=== PATIENT | male | born 1965 | race African-American/Black ===

== ENCOUNTER 2016-02-21 16:31 | Emergency (ER) | payer OTHER ==
[~2016-02-21] VITALS: Ht 195.6 cm; Wt 120.2 kg
[2016-02-21 17:10] LABS: BASO % 1 % (0-3); EOS % 2 % (0-3); HEMATOCRIT 33.2 % (39.0-53.0); LYMPH # 2.3 x10^3/uL (1.0-4.8); LYMPH % 28 % (24-48); MEAN CORPUSCULAR HEMOGLOBIN 29 pg (25-35); MEAN CORPUSCULAR HGB CONC 33 g/dL (31-37); MEAN CORPUSCULAR VOLUME 86 fL (79-100); MONO % 9 % (0-9); NEUT % 61 % (31-73); PLATELET COUNT 201 x10^3/uL (140-400); RED BLOOD COUNT 3.84 x10^6/uL (4.30-5.70); RED CELL DISTRIBUTION WIDTH 13.7 % (11.5-14.5); WHITE BLOOD COUNT 8.1 x10^3/uL (4.0-11.0)
[2016-02-21] MEDS ORDERED: hydrALAZINE 20 MG/ML VIAL. IVP ONE (17:15)
[2016-02-21 17:19] LABS: INR 1.3 (0.8-1.1); PROTHROMBIN TIME PATIENT 15.7 SEC (11.7-14.0)
[2016-02-21 17:26] LABS: CALCIUM 9.1 mg/dL (8.5-10.1); CREATININE 1.8 mg/dL (0.7-1.3); GFR 48.8; POTASSIUM 3.9 mmol/L (3.5-5.1)
[2016-02-21] MEDS ORDERED: LABETALOL 20 MG/4 ML DISP.SYRIN. IVP ONE (17:30)
[2016-02-21] MEDS ORDERED: LIDOCAINE 2% JELLY 6ML IN APPLICATOR. MM ONE (19:15)
[2016-02-21] MEDS ORDERED: MORPHINE SULFATE 10 MG/ML VIAL. IV ONE (19:15)
[2016-02-21] MEDS ORDERED: CEPH-263 PO (19:28)
--- NOTE | 2016-02-21 19:28 | PHYS DOC ---
Past Medical History Past Medical History: Hypertension, Hypotension, Renal Disease, Stroke, UTI Additional Past Medical Histor: RESP FAILURE, BRADYCARDIA, DIZZINESS, AMNESIA Past Surgical History: Other Additional Past Surgical Histo: UNKNOWN Alcohol Use: None Drug Use: None Adult General Chief Complaint Chief Complaint: PENIS PROBLEM HPI HPI Patient is a 50 year old male with neurogenic bladder and chronic indwelling Cerda who presents by EMS from nursing facility for evaluation of bloody penile discharge after attempt of Cerda catheter insertion and penile/perineal pain. This was a routine Cerda catheter exchange. He usually wears a 16 Palauan catheter, and he states they tried to insert an 18 Palauan catheter. He noted perineal and penile shaft pain and bleeding from his urethra area. He denies pain currently and does not want medications for pain. He has sensation to void. He denies abdominal pain, nausea or vomiting. His sister is also present during history and evaluation. They state he has largely fluctuating blood pressures and requires special medications for this. They are not surprised by how hypertensive he is. He denies chest pain, dyspnea, headache, vision changes. Review of Systems Review of Systems Constitutional: Denies fever or chills [] Eyes: Denies change in visual acuity, redness, or eye pain [] HENT: Denies nasal congestion or sore throat [] Respiratory: Denies cough or shortness of breath [] Cardiovascular: No additional information not addressed in HPI [] GI: Denies abdominal pain, nausea, vomiting, bloody stools or diarrhea [] : Denies dysuria [] Musculoskeletal: Denies back pain or joint pain [] Integument: Denies rash or skin lesions [] Neurologic: Denies headache, focal weakness or sensory changes [] Endocrine: Denies polyuria or polydipsia [] Current Medications Current Medications Current Medications Medications (Trade) Dose Ordered Sig/Yaz Start Time Stop Time Status Last Admin Dose Admin Hydralazine HCl (Apresoline) 20 mg 1X ONCE 02/21/16 17:15 02/21/16 17:16 DC 02/21/16 17:20 20 MG Labetalol HCl (Normodyne) 10 mg 1X ONCE 02/21/16 17:30 02/21/16 17:33 DC 02/21/16 17:41 10 MG Lidocaine HCl (Glydo (Lidocaine) Jelly) 1 mars 1X ONCE 02/21/16 19:15 02/21/16 19:16 DC Morphine Sulfate 5 mg 1X ONCE 02/21/16 19:15 02/21/16 19:16 DC Allergies Allergies Allergies Coded Allergies Type Severity Reaction Last Updated Verified No Known Drug Allergies 02/21/16 No Physical Exam Physical Exam Constitutional: Well developed, well nourished, no acute distress, non-toxic appearance. [] HENT: Normocephalic, atraumatic, bilateral external ears normal, oropharynx moist, nose normal. [] Eyes: PERRLA, EOMI. [] Neck: Normal range of motion, supple. [] Cardiovascular:Heart rate regular rhythm [] Lungs & Thorax: Bilateral breath sounds clear to auscultation [] Abdomen: Bowel sounds normal, soft, no tenderness. [] Genitourinary: Has penile shaft tenderness and perineal tenderness with no palpable abnormality, has minimal bloody discharge from urethra. There is no crepitance or induration. There is no scrotal edema or ecchymosis Skin: Warm, dry, no erythema, no rash. [] Back: No tenderness, no CVA tenderness. [] Extremities: No tenderness, no edema. [] Neurologic: Alert and oriented X 3. [] Psychologic: Affect normal, judgement normal, mood normal. [] Current Patient Data Vital Signs Vital Signs Date Time Temp Pulse Resp B/P Pulse Ox O2 Delivery O2 Flow Rate FiO2 02/21/16 20:10 80 18 168/84 99 Room Air Lab Values Laboratory Tests Test 02/21/16 16:44 White Blood Count 8.1x10^3/uL (4.0-11.0) Red Blood Count 3.84x10^6/uL (4.30-5.70) L Hemoglobin 11.0g/dL (13.0-17.5) L Hematocrit 33.2% (39.0-53.0) L Mean Corpuscular Volume 86fL (79-100) Mean Corpuscular Hemoglobin 29pg (25-35) Mean Corpuscular Hemoglobin Concent 33g/dL (31-37) Red Cell Distribution Width 13.7% (11.5-14.5) Platelet Count 201x10^3/uL (140-400) Neutrophils (%) (Auto) 61% (31-73) Lymphocytes (%) (Auto) 28% (24-48) Monocytes (%) (Auto) 9% (0-9) Eosinophils (%) (Auto) 2% (0-3) Basophils (%) (Auto) 1% (0-3) Neutrophils # (Auto) 4.9x10^3uL (1.8-7.7) Lymphocytes # (Auto) 2.3x10^3/uL (1.0-4.8) Monocytes # (Auto) 0.7x10^3/uL (0.0-1.1) Eosinophils # (Auto) 0.2x10^3/uL (0.0-0.7) Basophils # (Auto) 0.0x10^3/uL (0.0-0.2) Prothrombin Time 15.7SEC (11.7-14.0) H Prothrombin Time INR 1.3 (0.8-1.1) H PTT 35SEC (24-38) Sodium Level 136mmol/L (136-145) Potassium Level 3.9mmol/L (3.5-5.1) Chloride Level 104mmol/L (98-107) Carbon Dioxide Level 30mmol/L (21-32) Anion Gap 2 (6-14) L Blood Urea Nitrogen 29mg/dL (8-26) H Creatinine 1.8mg/dL (0.7-1.3) H Estimated GFR (Cockcroft-Gault) 48.8 Glucose Level 90mg/dL (70-99) Calcium Level 9.1mg/dL (8.5-10.1) Laboratory Tests 02/21/16 16:44 Laboratory Tests 02/21/16 16:44 Course & Med Decision Making Course & Med Decision Making Pertinent Labs and Imaging studies reviewed. (See chart for details) Laboratory evaluation is unremarkable. Discussed case with Dr. Ch, [facility], who recommended trial of 16 Palauan Coude catheter insertion. Nursing inserted this without difficulty passage and had initial pink urine followed by yellow clear urine. His symptom of need to void resolved. He will follow up with [facility]. He will be placed on prophylactic antibiotics per recommendation by Dr. Ch. Return precautions given. He and family understand and agree with plan. Dragon Disclaimer Dragon Disclaimer This electronic medical record was generated, in whole or in part, using a voice recognition dictation system. Departure Departure Impression: Primary Impression: Internal injury, urethra, closed Additional Impression: Uncontrolled hypertension Disposition: 01 HOME, SELF-CARE (transfer back to nursing facility) Condition: STABLE Referrals: UNKNOWN PCP NAME (PCP) Patient Instructions: Cerda Catheter Care, Adult Additional Instructions: Take Keflex to help prevent infection. Continue your current medications. Follow -up with [facility]. Return for any concerns. Scripts Cephalexin (Keflex)250 Mg Capsule1 Cap PO TID #15 CAP Prov:Bruna PEÑA MD 02/21/16 Problem Qualifiers Primary Impression: Internal injury, urethra, closed Encounter type: initial encounter Qualified Code: S37.30XA - Unspecified injury of urethra, initial encounter Bruna PEÑA MD Feb 21, 2016 19:28
[2016-02-21 20:10] VITALS: BP 168/84
== END 2016-02-21 21:20 | disposition home or self-care (01) ==
LOC: ER 16:31
DX: S37.30XA Unspecified injury of urethra, initial encounter (principal); I12.9 Hypertensive chronic kidney disease with stage 1 through stage 4 chronic kidney disease, or unspecified chronic kidney disease; N18.9 Chronic kidney disease, unspecified; I95.9 Hypotension, unspecified; Z46.6 Encounter for fitting and adjustment of urinary device; Z86.73 Personal history of transient ischemic attack (TIA), and cerebral infarction without residual deficits; Z87.440 Personal history of urinary (tract) infections; Y84.6 Urinary catheterization as the cause of abnormal reaction of the patient, or of later complication, without mention of misadventure at the time of the procedure; Y93.89 Activity, other specified; Y99.8 Other external cause status; Y92.89 Other specified places as the place of occurrence of the external cause
CPT/HCPCS: 36415; 51702; 80048; 85027; 85610; 85730; 86850; 86900; 86901; 96374; 96375; 99284; A4314; J0360; J3490

== ENCOUNTER 2016-05-21 00:43 | Inpatient (IN) | payer MEDICARE, OTHER ==
[2016-05-21] VITALS (7 sets, daily range): BP systolic 85–177; BP diastolic 56–122
[~2016-05-21] VITALS: Ht 195.6 cm; Wt 117.3 kg
[~2016-05-21 00:43] MED LIST: CEPH-263 PO
[2016-05-21 01:22] LABS: BILIRUBIN,URINE NEGATIVE (NEG); GLUCOSE,URINE NEGATIVE (NEG); NITRITE,URINE POSITIVE (NEG); PROTEIN,URINE 100 mg/dL (NEG-TRACE); UROBILINOGEN,URINE 0.2 mg/dL (0.2 mg/dL)
[2016-05-21 01:28] LABS: BACTERIA,URINE MANY /HPF (0-FEW); SQUAMOUS EPITHELIAL CELL,UR OCC /LPF
[2016-05-21] MEDS ORDERED: hydrALAZINE 20 MG/ML VIAL. IVP ONE (01:30)
--- NOTE | 2016-05-21 01:41 | ACF ---
Admission Forms Criteria MENTAL STATUS CHANGE Clinical Indications for Inpatient Care (Place 'X' for any and all applicable criteria): Ongoing inpatient care may be needed for ANY ONE of the following(1)(2)(3)(5)(6) : [ ]I. Suspected serious etiology (eg, medical disorder, SKEWER UP event) of mental status change [ ]II. Danger to self or others not manageable at lower level of care [ ]III. Grave disability (eg, inability to perform self care necessary at lower level of care) [ ]IV. Agitation or inappropriate behavior interfering with care for primary condition (eg, attempting to discontinue lines or drains prematurely, unable to cooperate with respiratory care) [ ]V. Delirium [A] [D][E] as described by ANY ONE of the following(26): [ ]a) Delirium due to alcohol or sedative [F] withdrawal [ ]b) Delirium of uncertain etiology that has not responded to appropriate empiric treatment [ ]c) Delirium that prevents performance of a life-sustaining function (eg, feeding or hydrating oneself) [ ]. General contraindications and/or Inappropriate clinical situations for Observational Care in patients with Mental Status Change, when ANY ONE of the following is required: [ ]a) Prediction of prolongation of LOS based on ANY ONE of the following may be considered as a contraindication for observational care 2, 3, 4, 5, 6, 7, 8, 9, 10, 11 [ ]i) Age > 65 yrs. [ ]ii) Patient arriving by ambulance [ ]iii) Patient with high acuity [ ]iv) Patient requiring vital sign monitoring [ ]v) Patient on IV medication [ ]b) Systolic blood pressures 180mmHg 3,12 [ ]c) Patient with altered mental status including delirium and other alteration of consciousness, (3) [ ]d) Patient whose discharge disposition will be to a snf home or rehabilitation home should not be managed in Emergency Department Observation Unit. CMS rule requires 3 days hospital stay before such placement.3,13 [ ]e) Patient with failure to thrive due to broad array of etiologies 3,16,17 [ ]f) Inability to ambulate 3,14 Extended stay beyond goal length of stay for the primary condition may be needed until ALL of the following are present(3)(5): [ ]a) Underlying medical etiology of mental status change is absent, or has been established and adequately treated [ ]b) Danger to self or others is absent or manageable at lower level of care. [ ]c) Behavior crisis management, including physical or chemical restraints, is not required or available at lower level of car [ ]d) Substance or alcohol withdrawal is absent or manageable at lower level of care. [ ]e) Behavioral symptoms (eg, agitation, somnolence, inappropriate behavior) are absent, or are manageable at lower level of care. The original [facility] content created by [facility] has been revised. The portions of the content which have been revised are identified through the use of italic text or in bold, and [facility] has neither reviewed nor approved the modified material. All other unmodified content is copyright [facility]. Please see references footnoted in the original [facility] edition 2016 CHRISTOPHER FUENTES May 21, 2016 01:41
--- NOTE | 2016-05-21 01:49 | RAD ---
Examination: CT head without contrast History: History of altered mental status. COMPARISON None available Exposure: One or more of the following dose reduction technique were utilized for this examination: 1. Automated exposure control. 2.Adjustment of MA and /or KV according to patient size. 3. Use of iterative reconstruction technique. Findings: There is no evidence of midline shift. There is no acute extra-axial fluid collection identified. There is 2.4 centimeter hypodensity identified in the left frontal lobe probably old infarct. There is tiny focus of hyperdensity identified in the hypodensity in the left frontal lobe just lateral to the left lateral ventricle could be calcification. Mild bilateral periventricular white matter hypodensities likely chronic small vessel ischemic disease. The basal cisterns are not effaced. The visualized paranasal sinuses, mastoid air cells are clear. Impression: 1. Hypodensity identified in the left frontal lobe likely old infarct. There is tiny focus of hyperdensity, measuring 3 millimeters, identified in the hypodensity of the left frontal lobe just lateral to the left lateral ventricle could be calcification. Comparison to prior exam is recommended if available. Alternatively close interval followup examination can be considered. Electronically signed by: Jose Manuel Schaffer (May 21, 2016 01:47:14)
[2016-05-21 01:54] LABS: BASO # 0.1 x10^3/uL (0.0-0.2); BASO % 1 % (0-3); EOS % 1 % (0-3); HEMATOCRIT 34.5 % (39.0-53.0); HEMOGLOBIN 11.5 g/dL (13.0-17.5); LYMPH # 1.5 x10^3/uL (1.0-4.8); LYMPH % 17 % (24-48); MEAN CORPUSCULAR HEMOGLOBIN 28 pg (25-35); MEAN CORPUSCULAR HGB CONC 33 g/dL (31-37); MEAN CORPUSCULAR VOLUME 84 fL (79-100); MONO % 7 % (0-9); NEUT % 75 % (31-73); PLATELET COUNT 130 x10^3/uL (140-400); RED BLOOD COUNT 4.12 x10^6/uL (4.30-5.70); RED CELL DISTRIBUTION WIDTH 13.9 % (11.5-14.5); WHITE BLOOD COUNT 9.1 x10^3/uL (4.0-11.0)
[2016-05-21 02:06] LABS: CALCIUM 9.3 mg/dL (8.5-10.1); GFR 43.2; POTASSIUM 3.5 mmol/L (3.5-5.1)
[2016-05-21 02:11] LABS: ALBUMIN 3.5 g/dL (3.4-5.0); ALBUMIN/GLOBULIN RATIO 0.8 (1.0-1.7); TOTAL BILIRUBIN 0.7 mg/dL (0.2-1.0); TOTAL PROTEIN 7.7 g/dL (6.4-8.2)
[2016-05-21] MEDS ORDERED: ONDANSETRON PF 4 MG/2 ML VIAL. IV PRN (02:30)
[2016-05-21] MEDS ORDERED: hydrALAZINE 20 MG/ML VIAL. IVP PRN (02:30)
[2016-05-21] MEDS ORDERED: MORPHINE SULFATE 2 MG/ML DISP.SYRIN. IV PRN ×2 (02:30→08:15)
[2016-05-21] MEDS ORDERED: ACETAMINOPHEN 325 MG TABLET. PO PRN (02:30)
[2016-05-21] MEDS ORDERED: CEFTRIAXONE 1GM IVPB FOR OMNI 50 ML IV ONE (03:00)
--- NOTE | 2016-05-21 03:01 | ACF ---
Admission Forms Criteria HYPERTENSION Clinical Indications for Admission to Inpatient Care ( Place "X" for any and all applicable criteria): Admission is indicated for ANY ONE of the following(1)(2)(3)(4): [ ]I. Hypertensive emergency, with evidence of acute and progressing target organ disease as indicated by ANY ONE of the following: [ ]a) Hypertensive encephalopathy (eg, confusion, altered mental status) [ ]b) Cerebral infarction [ ]c) Intracranial hemorrhage [ ]d) Myocardial ischemia or infarction [ ]e) Pulmonary edema [ ]f) Aortic dissection [ ]g) Seizure [ ]h) Acute renal insufficiency [ ]i) Papilledema [ ]j) Microangiopathic hemolytic anemia [ ]II. Adrenergic crisis (eg, severe hypertension due to pheochromocytoma crisis, cocaine or amphetamine intoxication, or clonidine withdrawal) [X]III. Severe hypertension (SBP greater than 180 mmHg or DBP greater than 110 mmHg or greater than the 95th percentile for age, gender, and height in pediatric patients) that cannot be controlled (eg, to SBP less than 160 mmHg and DBP less than 100 mmHg in adults) by treatment with oral medication in emergency department or observation care Extended stay beyond goal length of stay may be needed for(11)(12)(13): [ ]a) Persistent hypertensive encephalopathy [ ]b) Continuation of pulmonary edema [ ]c) Recurring or persistent severe hypertension [ ]d) Target organ damage (eg, angina, stroke, aortic dissection) [ ]e) Associated renal insufficiency The original [employer] content created by [employer] has been revised. The portions of the content which have been revised are identified through the use of italic text or in bold, and [facility] has neither reviewed nor approved the modified material. All other unmodified content is copyright [employer]. Please see references footnoted in the original [employer] [facility] edition 2016 Admission Criteria Met?: Yes CHRISTOPHER FUENTES May 21, 2016 03:01
[2016-05-21] MEDS ORDERED: ATOM18CA PO (04:08)
[2016-05-21] MEDS ORDERED: ALBU2.5V14 NEB (04:08)
[2016-05-21] MEDS ORDERED: FLUT9.9S NS (04:08)
[2016-05-21] MEDS ORDERED: DOCU100C5 PO (04:08)
[2016-05-21] MEDS ORDERED: ESCI20TA PO (04:08)
[2016-05-21] MEDS ORDERED: POLY17PO5 PO (04:08)
[2016-05-21] MEDS ORDERED: ASPI81TA2 PO (04:08)
[2016-05-21] MEDS ORDERED: CHOL200044 PO (04:08)
[2016-05-21] MEDS ORDERED: 0.9126SP NS (04:32)
[2016-05-21] MEDS ORDERED: MAGN311T PO (04:32)
[2016-05-21] MEDS ORDERED: SENN8.6T4 PO (04:32)
[2016-05-21] MEDS ORDERED: MIDO10TA PO (04:32)
[2016-05-21] MEDS ORDERED: MAGN400O4 PO (04:32)
[2016-05-21] MEDS ORDERED: NITR1OIN TD (04:32)
[2016-05-21] MEDS ORDERED: SENN8.6T67 PO (04:32)
[2016-05-21] MEDS ORDERED: HYDR-2867 PO (04:32)
--- NOTE | 2016-05-21 04:37 | PHYS DOC ---
Past Medical History Past Medical History: Hypertension, Hypotension, Renal Disease, Stroke, UTI Additional Past Medical Histor: RESP FAILURE, BRADYCARDIA, DIZZINESS, AMNESIA, SYNCOPE Past Surgical History: Other Additional Past Surgical Histo: UNKNOWN Alcohol Use: None Drug Use: None Adult General Chief Complaint Chief Complaint: ALTERED MENTAL STATUS HPI HPI Patient is a 50 year old male who presents after unresponsive episode. Patient sent from [facility] after episode where staff reports he was unresponsive for approximately 20 minutes. He is breathing spontaneously, and had a pulse but was unresponsive to verbal stimuli or sternal rub. Patient does not recall this episode. He says he is feeling okay at this time, however he does not feel good. He denies any specific complaints. He does have history of orthostatic hypotension as well as autonomic nervous system dysfunction. Review of Systems Review of Systems Constitutional: Unresponsive episode. Denies fever or chills Eyes: Denies change in visual acuity or eye pain HENT: Denies nasal congestion or sore throat Respiratory: Denies cough or shortness of breath Cardiovascular: Denies chest pain GI: Denies abdominal pain, nausea, vomiting, bloody stools or diarrhea : Denies dysuria or hematuria Musculoskeletal: Denies back pain or joint pain Integument: Denies rash or skin lesions Neurologic: Denies headache, focal weakness or sensory changes Current Medications Current Medications Current Medications Medications (Trade) Dose Ordered Sig/Yaz Start Time Stop Time Status Last Admin Dose Admin Hydralazine HCl (Apresoline) 10 mg 1X ONCE 05/21/16 01:30 05/21/16 01:31 DC 05/21/16 01:57 10 MG Allergies Allergies Allergies Coded Allergies Type Severity Reaction Last Updated Verified No Known Drug Allergies 02/21/16 No Physical Exam Physical Exam Constitutional: Well developed, well nourished, no acute distress, non-toxic appearance HENT: Normocephalic, atraumatic, bilateral external ears normal Eyes: PERRL, EOMI, conjunctiva normal, no discharge Neck: Normal range of motion, no stridor Cardiovascular: Borderline tachycardia, regular rhythm, no murmur Lungs & Thorax: Bilateral breath sounds clear to auscultation Abdomen: Bowel sounds normal, soft, non-distended, no TTP Skin: Warm, dry, no erythema, no rash Extremities: No obvious deformity, no edema Neurologic: Alert and oriented X 3, GCS 15, CN II-XII grossly intact, strength diminished throughout but symmetrical, sensation to light touch intact throughout Current Patient Data Vital Signs Vital Signs Date Time Temp Pulse Resp B/P Pulse Ox O2 Delivery O2 Flow Rate FiO2 05/21/16 02:23 104 18 155/92 99 05/21/16 02:13 Room Air 05/21/16 01:00 98.5 98.5 Lab Values Laboratory Tests Test 05/21/16 00:59 05/21/16 01:45 Urine Collection Type Unknown Urine Color Yellow Urine Clarity Turbid Urine pH 8.0 Urine Specific [place] 1.010 Urine Protein 100mg/dL (NEG-TRACE) Urine Glucose (UA) Negativemg/dL (NEG) Urine Ketones (Stick) Negativemg/dL (NEG) Urine Blood Moderate (NEG) Urine Nitrite Positive (NEG) Urine Bilirubin Negative (NEG) Urine Urobilinogen Dipstick 0.2mg/dL (0.2 mg/dL) Urine Leukocyte Esterase Moderate (NEG) Urine RBC 3-5/HPF (0-2) Urine WBC 5-10/HPF (0-4) Urine Squamous Epithelial Cells Occ/LPF Urine Amorphous Sediment Present/HPF Urine Bacteria Many/HPF (0-FEW) Urine Mucus Slight/LPF White Blood Count 9.1x10^3/uL (4.0-11.0) Red Blood Count 4.12x10^6/uL (4.30-5.70) L Hemoglobin 11.5g/dL (13.0-17.5) L Hematocrit 34.5% (39.0-53.0) L Mean Corpuscular Volume 84fL (79-100) Mean Corpuscular Hemoglobin 28pg (25-35) Mean Corpuscular Hemoglobin Concent 33g/dL (31-37) Red Cell Distribution Width 13.9% (11.5-14.5) Platelet Count 130x10^3/uL (140-400) L Neutrophils (%) (Auto) 75% (31-73) H Lymphocytes (%) (Auto) 17% (24-48) L Monocytes (%) (Auto) 7% (0-9) Eosinophils (%) (Auto) 1% (0-3) Basophils (%) (Auto) 1% (0-3) Neutrophils # (Auto) 6.8x10^3uL (1.8-7.7) Lymphocytes # (Auto) 1.5x10^3/uL (1.0-4.8) Monocytes # (Auto) 0.7x10^3/uL (0.0-1.1) Eosinophils # (Auto) 0.1x10^3/uL (0.0-0.7) Basophils # (Auto) 0.1x10^3/uL (0.0-0.2) Sodium Level 141mmol/L (136-145) Potassium Level 3.5mmol/L (3.5-5.1) Chloride Level 102mmol/L (98-107) Carbon Dioxide Level 31mmol/L (21-32) Anion Gap 8 (6-14) Blood Urea Nitrogen 27mg/dL (8-26) H Creatinine 2.0mg/dL (0.7-1.3) H Estimated GFR (Cockcroft-Gault) 43.2 BUN/Creatinine Ratio 14 (6-20) Glucose Level 120mg/dL (70-99) H Calcium Level 9.3mg/dL (8.5-10.1) Total Bilirubin 0.7mg/dL (0.2-1.0) Aspartate Amino Transferase (AST) 26U/L (15-37) Alanine Aminotransferase (ALT) 19U/L (16-63) Alkaline Phosphatase 86U/L (46-116) Total Protein 7.7g/dL (6.4-8.2) Albumin 3.5g/dL (3.4-5.0) Albumin/Globulin Ratio 0.8 (1.0-1.7) L Laboratory Tests 05/21/16 01:45 Laboratory Tests 05/21/16 01:45 EKG EKG EKG (my read): sinus rhythm, rate 98, normal axis, nonspecific ST changes Radiology/Procedures Radiology/Procedures CT head: Impression: 1. Hypodensity identified in the left frontal lobe likely old infarct. There is tiny focus of hyperdensity, measuring 3 millimeters, identified in the hypodensity of the left frontal lobe just lateral to the left lateral ventricle could be calcification. Comparison to prior exam is recommended if available. Alternatively close interval followup examination can be considered. CXR (my read): No acute abnormality Course & Med Decision Making Course & Med Decision Making Pertinent Labs and Imaging studies reviewed. (See chart for details) Patient is 50-year-old male who presents after unresponsive episode. Does have a history of orthostatic hypotension, however I do not believe this would cause such a long episode. Will obtain EKG, CT head, chest x-ray, labs to evaluate. Patient noted to be hypertensive on exam (223/143), will give dose of hydralazine. Blood work largely unremarkable; creatinine elevated at baseline. EKG and imaging results as above. UA indicative of UTI, dose of Rocephin ordered. Discussed results with patient. Discussed with Dr. Sam (covering for Dr. Travis). Will admit to hospital for further evaluation and treatment. Dragon Disclaimer Dragon Disclaimer This electronic medical record was generated, in whole or in part, using a voice recognition dictation system. Departure Departure Impression: Primary Impression: Unresponsive episode Disposition: ADMITTED INPATIENT Admitting Physician: Angel Travis Condition: STABLE Referrals: ANGEL TRAVIS MD (PCP) MANUELA ALFARO MD May 21, 2016 04:37
--- NOTE | 2016-05-21 08:05 | RAD ---
EXAM: Chest, single view. HISTORY: Altered mental status. COMPARISON: None. FINDINGS: A frontal view of the chest is obtained. There is no infiltrate, effusion or pneumothorax. The heart is normal in size. IMPRESSION: No acute pulmonary finding.
[2016-05-21] MEDS ORDERED: MIDODRINE 5 MG TABLET PO PRN (08:15)
[2016-05-21] MEDS ORDERED: MAGNESIUM HYDROXIDE 2,400 MG/30 ML ORAL.SUSP. PO PRN ×2 (08:15)
[2016-05-21] MEDS ORDERED: IV NORMAL SALINE 1000ML BAG 1,000 ML IV ONE (09:00)
--- NOTE | 2016-05-21 09:18 | EKG ---
[facility] [address] [place] [address] Test Date: 2016-05-21 Test Time: 00:53:27 Pat Name: CHELI MEMBRENO Department: Room: 248 1 Gender: M Manager Endoscopy: : 1965 Requested By: MANUELA ALFARO Order Number: [id number] Reading MD: Ashley Machuca Measurements Intervals Josephine Rate: 98 P: 31 KS: 144 QRS: 9 QRSD: 94 T: 87 QT: 356 QTc: 456 Interpretive Statements SINUS RHYTHM LEFT ATRIAL ABNORMALITY T ABNORMALITY IN HIGH LATERAL LEADS ABNORMAL ECG RI6.01 No previous ECG available for comparison Electronically Signed On 05-22-2016 19:08:28 CDT by Ashley Machuca
--- NOTE | 2016-05-21 09:31 | PDOC1 ---
RENETTA LAINEZ APPLIED PSYCHOLOGY PROFESSOR 05/21/16 0931: HISTORY AND PHYSICAL Chief Complaint Chief Complaint This 50 year old male has been admitted with a chief complaint of unresponsiveness. He is on SNU at [facility] after discharge from [facility] after discharge from for treatment UTI. He presented to the ED with unresponsiveness for 20minutes monitored by the staff at [facility]. His HR and RR was not affected. He was transported to [facility] ED for evaluation. His BP on arrival was 220/140 and he was awake. He did not recall incident. He was given hydralazine 10mg IV x 1. A UA was positive for nitrate, WBC 5-10 and blood. He had been on Keflex at the SNU. He was given a dose of Rocephin and admitted to [facility]. Problem List Problems Medical Problems: (1) Unresponsive episode Status: Acute Past Medical History Cardiovascular: HTN, Other (autonomic dysfunction with orthostatic hypotension ) Pulmonary: Other (AMADOU on BiPap at ) CENTRAL NERVOUS SYSTEM: CVA (L frontal old infarct ), Other (MSA with urine retention, mobility disorder, and autonomic functions. 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 Medications Medications reviewed and reconciled Allergy Allergies Coded Allergies Type Severity Reaction Last Updated Verified No Known Drug Allergies 02/21/16 No Physical Exam Physical Exam General appearance - alert, ill appearing and in no distress. Mental Status - alert, oriented to person, place, and time, affect appropriate to mood Head - normal Chest - clear to auscultation, no wheezes, rales or rhonchi, symmetric air entry Heart - S1 and S2 normal Abdomen - soft, nontender, nondistended, no masses or organomegaly, BS+ Neurological - generalized weakness, no acute focal neurological deficits noted Musculoskeletal - + generalized weakness. Extremities - no pedal edema Skin - warm and dry VTE Prophylaxis Ordered VTE Prophylaxis Devices: Yes VTE Pharmacological Prophylaxi: No Assessment Labs Laboratory Tests Test 05/21/16 00:59 05/21/16 01:45 Urine Collection Type Unknown Urine Color Yellow Urine Clarity Turbid Urine pH 8.0 Urine Specific [place] 1.010 Urine Protein 100mg/dL (NEG-TRACE) Urine Glucose (UA) Negativemg/dL (NEG) Urine Ketones (Stick) Negativemg/dL (NEG) Urine Blood Moderate (NEG) Urine Nitrite Positive (NEG) Urine Bilirubin Negative (NEG) Urine Urobilinogen Dipstick 0.2mg/dL (0.2 mg/dL) Urine Leukocyte Esterase Moderate (NEG) Urine RBC 3-5/HPF (0-2) Urine WBC 5-10/HPF (0-4) Urine Squamous Epithelial Cells Occ/LPF Urine Amorphous Sediment Present/HPF Urine Bacteria Many/HPF (0-FEW) Urine Mucus Slight/LPF White Blood Count 9.1x10^3/uL (4.0-11.0) Red Blood Count 4.12x10^6/uL (4.30-5.70) Hemoglobin 11.5g/dL (13.0-17.5) Hematocrit 34.5% (39.0-53.0) Mean Corpuscular Volume 84fL (79-100) Mean Corpuscular Hemoglobin 28pg (25-35) Mean Corpuscular Hemoglobin Concent 33g/dL (31-37) Red Cell Distribution Width 13.9% (11.5-14.5) Platelet Count 130x10^3/uL (140-400) Neutrophils (%) (Auto) 75% (31-73) Lymphocytes (%) (Auto) 17% (24-48) Monocytes (%) (Auto) 7% (0-9) Eosinophils (%) (Auto) 1% (0-3) Basophils (%) (Auto) 1% (0-3) Neutrophils # (Auto) 6.8x10^3uL (1.8-7.7) Lymphocytes # (Auto) 1.5x10^3/uL (1.0-4.8) Monocytes # (Auto) 0.7x10^3/uL (0.0-1.1) Eosinophils # (Auto) 0.1x10^3/uL (0.0-0.7) Basophils # (Auto) 0.1x10^3/uL (0.0-0.2) Sodium Level 141mmol/L (136-145) Potassium Level 3.5mmol/L (3.5-5.1) Chloride Level 102mmol/L (98-107) Carbon Dioxide Level 31mmol/L (21-32) Anion Gap 8 (6-14) Blood Urea Nitrogen 27mg/dL (8-26) Creatinine 2.0mg/dL (0.7-1.3) Estimated GFR (Cockcroft-Gault) 43.2 BUN/Creatinine Ratio 14 (6-20) Glucose Level 120mg/dL (70-99) Calcium Level 9.3mg/dL (8.5-10.1) Total Bilirubin 0.7mg/dL (0.2-1.0) Aspartate Amino Transf (AST/SGOT) 26U/L (15-37) Alanine Aminotransferase (ALT/SGPT) 19U/L (16-63) Alkaline Phosphatase 86U/L (46-116) Total Protein 7.7g/dL (6.4-8.2) Albumin 3.5g/dL (3.4-5.0) Albumin/Globulin Ratio 0.8 (1.0-1.7) Laboratory Tests Test 05/21/16 00:59 05/21/16 01:45 Urine Collection Type Unknown Urine Color Yellow Urine Clarity Turbid Urine pH 8.0 Urine Specific [place] 1.010 Urine Protein 100mg/dL (NEG-TRACE) Urine Glucose (UA) Negativemg/dL (NEG) Urine Ketones (Stick) Negativemg/dL (NEG) Urine Blood Moderate (NEG) Urine Nitrite Positive (NEG) Urine Bilirubin Negative (NEG) Urine Urobilinogen Dipstick 0.2mg/dL (0.2 mg/dL) Urine Leukocyte Esterase Moderate (NEG) Urine RBC 3-5/HPF (0-2) Urine WBC 5-10/HPF (0-4) Urine Squamous Epithelial Cells Occ/LPF Urine Amorphous Sediment Present/HPF Urine Bacteria Many/HPF (0-FEW) Urine Mucus Slight/LPF White Blood Count 9.1x10^3/uL (4.0-11.0) Red Blood Count 4.12x10^6/uL (4.30-5.70) Hemoglobin 11.5g/dL (13.0-17.5) Hematocrit 34.5% (39.0-53.0) Mean Corpuscular Volume 84fL (79-100) Mean Corpuscular Hemoglobin 28pg (25-35) Mean Corpuscular Hemoglobin Concent 33g/dL (31-37) Red Cell Distribution Width 13.9% (11.5-14.5) Platelet Count 130x10^3/uL (140-400) Neutrophils (%) (Auto) 75% (31-73) Lymphocytes (%) (Auto) 17% (24-48) Monocytes (%) (Auto) 7% (0-9) Eosinophils (%) (Auto) 1% (0-3) Basophils (%) (Auto) 1% (0-3) Neutrophils # (Auto) 6.8x10^3uL (1.8-7.7) Lymphocytes # (Auto) 1.5x10^3/uL (1.0-4.8) Monocytes # (Auto) 0.7x10^3/uL (0.0-1.1) Eosinophils # (Auto) 0.1x10^3/uL (0.0-0.7) Basophils # (Auto) 0.1x10^3/uL (0.0-0.2) Sodium Level 141mmol/L (136-145) Potassium Level 3.5mmol/L (3.5-5.1) Chloride Level 102mmol/L (98-107) Carbon Dioxide Level 31mmol/L (21-32) Anion Gap 8 (6-14) Blood Urea Nitrogen 27mg/dL (8-26) Creatinine 2.0mg/dL (0.7-1.3) Estimated GFR (Cockcroft-Gault) 43.2 BUN/Creatinine Ratio 14 (6-20) Glucose Level 120mg/dL (70-99) Calcium Level 9.3mg/dL (8.5-10.1) Total Bilirubin 0.7mg/dL (0.2-1.0) Aspartate Amino Transf (AST/SGOT) 26U/L (15-37) Alanine Aminotransferase (ALT/SGPT) 19U/L (16-63) Alkaline Phosphatase 86U/L (46-116) Total Protein 7.7g/dL (6.4-8.2) Albumin 3.5g/dL (3.4-5.0) Albumin/Globulin Ratio 0.8 (1.0-1.7) Plan Plan 1. complicated UTI recurrent POA 2. autonomic dysfunction with orthostatic hypotension 3. neurogenic bladder with urine retention due to MSA with chronic maurice 4. HTN 5. old CVA 2007 6. ARF with CKD II 7. anemia chronic disease 8. thrombocytopenia chronic PLAN: UTI Levaquin 250mg IV x 1 change maurice and resend UA. orthostatic hypotension protamine orders in place MSA orthostatic hypotension mobility disorder chronic maurice urine retention PTOT ARF with CKD II IV NS 75cc/hr x 1 liter Admit BUN 27 Cr 2.0 anemia/thrombocytopenia Admit Hgb 11.5 Plt 130 DVT/GI prophylaxis SCD/RANDAL Pepcid For more details regarding further plans, please refer to the orders. SKYLER KATHLEEN MD 05/21/16 1040: HISTORY AND PHYSICAL Plan Plan D/w DPOA- Makeda- she states that he passed out due to high BiPap- this happened once at [facility] also. Insurance issues discussed with her. Check for UTI. Transfer to [place] in 1-2 days. Clinically improving. Cancel cardiology consult. The patient was seen and examined by me. Chart reviewed and plan of care formulated. Discussed with, reviewed and agree with [employer]'s notes, plan of care and orders with modifications as necessary. For more details regarding further plans, please refer to the orders. RENETTA LAINEZ APRN May 21, 2016 09:31 SKYLER KATHLEEN MD May 21, 2016 10:40
[2016-05-21] MEDS ORDERED: POTASSIUM CHLORIDE 20 MEQ TABLET.ER. PO ONE (10:00)
[2016-05-21] MEDS: POLYETHYLENE GLYCOL 3350 17 GM PACKET. PO SCH ×2 (10:01→20:27)
[2016-05-21] MEDS: DOCUSATE SODIUM 100 MG CAPSULE. PO SCH (10:01)
[2016-05-21] MEDS: SENNOSIDES 8.6 MG TABLET PO SCH (10:01)
[2016-05-21] MEDS: MIDODRINE 5 MG TABLET PO SCH ×2 (10:01→17:59)
[2016-05-21] MEDS: ESCITALOPRAM 10 MG TABLET. PO SCH (10:02)
[2016-05-21] MEDS: ASPIRIN CHEWABLE 81 MG TABLET. PO SCH (10:02)
[2016-05-21] MEDS: SODIUM CHLORIDE 0.65% NASAL SPRAY 45ML BOTTLE. NS SCH ×3 (10:04→20:31)
[2016-05-21] MEDS: FLUTICASONE 50MCG/NASAL SPRAY 16GM BOTTLE. NS SCH (10:04)
[2016-05-21] MEDS: IPRATRPIUM/ALBUTEROL 0.5/2.5MG 3 ML NEBU. NEB SCH ×3 (11:45→21:15)
[2016-05-21] MEDS: METHYLPHENIDATE HCL 5 MG TABLET PO SCH (14:58)
[2016-05-21] MEDS: FAMOTIDINE 20 MG TABLET. PO SCH ×2 (14:58→20:27)
[2016-05-21 17:55] LABS: BILIRUBIN,URINE NEGATIVE (NEG); GLUCOSE,URINE NEGATIVE (NEG); NITRITE,URINE POSITIVE (NEG); PH,URINE 5.5; PROTEIN,URINE 100 mg/dL (NEG-TRACE); UROBILINOGEN,URINE 0.2 mg/dL (0.2 mg/dL)
[2016-05-21 18:07] LABS: BACTERIA,URINE FEW /HPF (0-FEW); WBC,URINE >40 /HPF (0-4)
[2016-05-21] MEDS: CHOLECALCIFEROL (VITAMIN D3) 1,000 UNIT TABLET PO SCH (20:29)
[2016-05-21] MEDS: NITROGLYCERIN OINT 1 GM PACKET. TD SCH (20:29)
[2016-05-22] VITALS (9 sets, daily range): BP systolic 112–238; BP diastolic 61–134
[2016-05-22 06:04] LABS: BASO % 0 % (0-3); EOS % 1 % (0-3); HEMATOCRIT 28.4 % (39.0-53.0); HEMOGLOBIN 9.4 g/dL (13.0-17.5); LYMPH # 2.2 x10^3/uL (1.0-4.8); LYMPH % 33 % (24-48); MEAN CORPUSCULAR HEMOGLOBIN 28 pg (25-35); MEAN CORPUSCULAR HGB CONC 33 g/dL (31-37); MEAN CORPUSCULAR VOLUME 85 fL (79-100); MONO % 7 % (0-9); NEUT % 58 % (31-73); PLATELET COUNT 110 x10^3/uL (140-400); RED BLOOD COUNT 3.32 x10^6/uL (4.30-5.70); RED CELL DISTRIBUTION WIDTH 14.2 % (11.5-14.5); WHITE BLOOD COUNT 6.5 x10^3/uL (4.0-11.0)
[2016-05-22 06:29] LABS: CALCIUM 9.2 mg/dL (8.5-10.1); CREATININE 2.4 mg/dL (0.7-1.3); POTASSIUM 4.1 mmol/L (3.5-5.1)
[2016-05-22] MEDS: MIDODRINE 5 MG TABLET PO SCH ×2 (08:00→17:52)
[2016-05-22] MEDS: IPRATRPIUM/ALBUTEROL 0.5/2.5MG 3 ML NEBU. NEB SCH ×4 (08:12→20:47)
[2016-05-22] MEDS: SENNOSIDES 8.6 MG TABLET PO SCH (09:07)
[2016-05-22] MEDS: ESCITALOPRAM 10 MG TABLET. PO SCH (09:07)
[2016-05-22] MEDS: POLYETHYLENE GLYCOL 3350 17 GM PACKET. PO SCH ×2 (09:07→20:56)
[2016-05-22] MEDS: DOCUSATE SODIUM 100 MG CAPSULE. PO SCH (09:07)
[2016-05-22] MEDS: ASPIRIN CHEWABLE 81 MG TABLET. PO SCH (09:07)
[2016-05-22] MEDS: METHYLPHENIDATE HCL 5 MG TABLET PO SCH ×2 (09:08→12:40)
[2016-05-22] MEDS: FAMOTIDINE 20 MG TABLET. PO SCH ×2 (09:08→20:56)
[2016-05-22] MEDS: FLUTICASONE 50MCG/NASAL SPRAY 16GM BOTTLE. NS SCH (09:08)
[2016-05-22] MEDS: SODIUM CHLORIDE 0.65% NASAL SPRAY 45ML BOTTLE. NS SCH ×3 (09:08→20:58)
[2016-05-22] MEDS ORDERED: POTASSIUM CHLORIDE 20 MEQ in IV DEXTROSE 5 %-0.45 % NACL 1,000 ML IV SCH (09:30)
--- NOTE | 2016-05-22 10:06 | PDOC ---
IM PROGRESS NOTES- Subjective Subjective No pain,dizziness. Objective Vitals Vital Signs Date Time Temp Pulse Resp B/P Pulse Ox O2 Delivery O2 Flow Rate FiO2 05/22/16 08:12 100 BiPAP/CPAP 05/22/16 08:00 166/91 05/22/16 07:25 97.3 71 16 97.3 05/21/16 21:15 2.0 Input & Output Intake and Output 05/22/16 06:59 Intake Total 2120 ml Output Total 350 ml Balance 1770 ml Intake Oral 1170 ml IV Total 950 ml Output Urine Total 350 ml Physical Exam Physical Exam General appearance - alert, ill appearing and in no distress. Mental Status - alert, oriented to person, place, and time, affect appropriate to mood Head - normal Chest - clear to auscultation, no wheezes, rales or rhonchi, symmetric air entry Heart - S1 and S2 normal Abdomen - soft, nontender, nondistended, no masses or organomegaly, BS+ Neurological - generalized weakness, no acute focal neurological deficits noted Musculoskeletal - + generalized weakness. Extremities - + pedal edema Skin - warm and dry Labs Laboratory Tests Test 05/21/16 00:59 05/21/16 01:45 05/21/16 04:45 05/21/16 17:50 Urine Collection Type Unknown U cath Urine Color Yellow Yellow Urine Clarity Turbid Cloudy Urine pH 8.0 5.5 Urine Specific [place] 1.010 1.025 Urine Protein 100mg/dL (NEG-TRACE) 100mg/dL (NEG-TRACE) Urine Glucose (UA) Negativemg/dL (NEG) Negativemg/dL (NEG) Urine Ketones (Stick) Negativemg/dL (NEG) Negativemg/dL (NEG) Urine Blood Moderate (NEG) Small (NEG) Urine Nitrite Positive (NEG) Positive (NEG) Urine Bilirubin Negative (NEG) Negative (NEG) Urine Urobilinogen Dipstick 0.2mg/dL (0.2 mg/dL) 0.2mg/dL (0.2 mg/dL) Urine Leukocyte Esterase Moderate (NEG) Moderate (NEG) Urine RBC 3-5/HPF (0-2) 1-2/HPF (0-2) Urine WBC 5-10/HPF (0-4) >40/HPF (0-4) Urine Squamous Epithelial Cells Occ/LPF Urine Amorphous Sediment Present/HPF Urine Bacteria Many/HPF (0-FEW) Few/HPF (0-FEW) Urine Mucus Slight/LPF Mod/LPF White Blood Count 9.1x10^3/uL (4.0-11.0) Red Blood Count 4.12x10^6/uL (4.30-5.70) Hemoglobin 11.5g/dL (13.0-17.5) Hematocrit 34.5% (39.0-53.0) Mean Corpuscular Volume 84fL (79-100) Mean Corpuscular Hemoglobin 28pg (25-35) Mean Corpuscular Hemoglobin Concent 33g/dL (31-37) Red Cell Distribution Width 13.9% (11.5-14.5) Platelet Count 130x10^3/uL (140-400) Neutrophils (%) (Auto) 75% (31-73) Lymphocytes (%) (Auto) 17% (24-48) Monocytes (%) (Auto) 7% (0-9) Eosinophils (%) (Auto) 1% (0-3) Basophils (%) (Auto) 1% (0-3) Neutrophils # (Auto) 6.8x10^3uL (1.8-7.7) Lymphocytes # (Auto) 1.5x10^3/uL (1.0-4.8) Monocytes # (Auto) 0.7x10^3/uL (0.0-1.1) Eosinophils # (Auto) 0.1x10^3/uL (0.0-0.7) Basophils # (Auto) 0.1x10^3/uL (0.0-0.2) Sodium Level 141mmol/L (136-145) Potassium Level 3.5mmol/L (3.5-5.1) Chloride Level 102mmol/L (98-107) Carbon Dioxide Level 31mmol/L (21-32) Anion Gap 8 (6-14) Blood Urea Nitrogen 27mg/dL (8-26) Creatinine 2.0mg/dL (0.7-1.3) Estimated GFR (Cockcroft-Gault) 43.2 BUN/Creatinine Ratio 14 (6-20) Glucose Level 120mg/dL (70-99) Calcium Level 9.3mg/dL (8.5-10.1) Total Bilirubin 0.7mg/dL (0.2-1.0) Aspartate Amino Transf (AST/SGOT) 26U/L (15-37) Alanine Aminotransferase (ALT/SGPT) 19U/L (16-63) Alkaline Phosphatase 86U/L (46-116) Total Protein 7.7g/dL (6.4-8.2) Albumin 3.5g/dL (3.4-5.0) Albumin/Globulin Ratio 0.8 (1.0-1.7) Nasal Screen MRSA (PCR) Negative (Negative) Urine Transitional Epithelial Cells Occ/LPF Urine Hyaline Casts Few/HPF Test 05/22/16 05:00 White Blood Count 6.5x10^3/uL (4.0-11.0) Red Blood Count 3.32x10^6/uL (4.30-5.70) Hemoglobin 9.4g/dL (13.0-17.5) Hematocrit 28.4% (39.0-53.0) Mean Corpuscular Volume 85fL (79-100) Mean Corpuscular Hemoglobin 28pg (25-35) Mean Corpuscular Hemoglobin Concent 33g/dL (31-37) Red Cell Distribution Width 14.2% (11.5-14.5) Platelet Count 110x10^3/uL (140-400) Neutrophils (%) (Auto) 58% (31-73) Lymphocytes (%) (Auto) 33% (24-48) Monocytes (%) (Auto) 7% (0-9) Eosinophils (%) (Auto) 1% (0-3) Basophils (%) (Auto) 0% (0-3) Neutrophils # (Auto) 3.8x10^3uL (1.8-7.7) Lymphocytes # (Auto) 2.2x10^3/uL (1.0-4.8) Monocytes # (Auto) 0.5x10^3/uL (0.0-1.1) Eosinophils # (Auto) 0.0x10^3/uL (0.0-0.7) Basophils # (Auto) 0.0x10^3/uL (0.0-0.2) Sodium Level 143mmol/L (136-145) Potassium Level 4.1mmol/L (3.5-5.1) Chloride Level 106mmol/L (98-107) Carbon Dioxide Level 31mmol/L (21-32) Anion Gap 6 (6-14) Blood Urea Nitrogen 34mg/dL (8-26) Creatinine 2.4mg/dL (0.7-1.3) Estimated GFR (Cockcroft-Gault) 35.0 Glucose Level 88mg/dL (70-99) Calcium Level 9.2mg/dL (8.5-10.1) Laboratory Tests Test 05/21/16 17:50 05/22/16 05:00 Urine Collection Type U cath Urine Color Yellow Urine Clarity Cloudy Urine pH 5.5 Urine Specific [place] 1.025 Urine Protein 100mg/dL (NEG-TRACE) Urine Glucose (UA) Negativemg/dL (NEG) Urine Ketones (Stick) Negativemg/dL (NEG) Urine Blood Small (NEG) Urine Nitrite Positive (NEG) Urine Bilirubin Negative (NEG) Urine Urobilinogen Dipstick 0.2mg/dL (0.2 mg/dL) Urine Leukocyte Esterase Moderate (NEG) Urine RBC 1-2/HPF (0-2) Urine WBC >40/HPF (0-4) Urine Transitional Epithelial Cells Occ/LPF Urine Bacteria Few/HPF (0-FEW) Urine Hyaline Casts Few/HPF Urine Mucus Mod/LPF White Blood Count 6.5x10^3/uL (4.0-11.0) Red Blood Count 3.32x10^6/uL (4.30-5.70) Hemoglobin 9.4g/dL (13.0-17.5) Hematocrit 28.4% (39.0-53.0) Mean Corpuscular Volume 85fL (79-100) Mean Corpuscular Hemoglobin 28pg (25-35) Mean Corpuscular Hemoglobin Concent 33g/dL (31-37) Red Cell Distribution Width 14.2% (11.5-14.5) Platelet Count 110x10^3/uL (140-400) Neutrophils (%) (Auto) 58% (31-73) Lymphocytes (%) (Auto) 33% (24-48) Monocytes (%) (Auto) 7% (0-9) Eosinophils (%) (Auto) 1% (0-3) Basophils (%) (Auto) 0% (0-3) Neutrophils # (Auto) 3.8x10^3uL (1.8-7.7) Lymphocytes # (Auto) 2.2x10^3/uL (1.0-4.8) Monocytes # (Auto) 0.5x10^3/uL (0.0-1.1) Eosinophils # (Auto) 0.0x10^3/uL (0.0-0.7) Basophils # (Auto) 0.0x10^3/uL (0.0-0.2) Sodium Level 143mmol/L (136-145) Potassium Level 4.1mmol/L (3.5-5.1) Chloride Level 106mmol/L (98-107) Carbon Dioxide Level 31mmol/L (21-32) Anion Gap 6 (6-14) Blood Urea Nitrogen 34mg/dL (8-26) Creatinine 2.4mg/dL (0.7-1.3) Estimated GFR (Cockcroft-Gault) 35.0 Glucose Level 88mg/dL (70-99) Calcium Level 9.2mg/dL (8.5-10.1) Meds Current Medications Albuterol/ Ipratropium (Duoneb) 3 ml RTQID NEB Last administered on 05/22/16 08 :12; Start 05/21/16 at 12:00 Famotidine 20 mg 20 mg BID PO Last administered on 05/22/16 09:08; Start at 11:00 Methylphenidate HCl (Ritalin) 5 mg BIDACBL PO Last administered on 05/22/16 09: 08; Start 05/21/16 at 11:30 Nitroglycerin (Nitro-Bid Oint) 1 inch HS TD Last administered on 05/21/16 20:29 ; Start 05/21/16 at 21:00 Potassium Chloride 20 meq/ Dextrose/Sodium Chloride 1,010 ml @ 75 mls/hr CONT IV ; Start 05/22/16 at 09:30; Stop 05/22/16 at 09:38; Status DC Potassium Chloride/Dextrose/ Sod Cl (KCl 20 Meq In D5W-02/21 NS) 1,000 ml @ 75 mls/hr [id number] IV ; Start 05/22/16 at 09:45 Vitamin D (Vitamin D3) 2,000 unit HS PO Last administered on 4/1/17at 20:29; Start 05/21/16 at 21:00 Assessment Assessment 1. complicated UTI recurrent POA 2. autonomic dysfunction with orthostatic hypotension 3. neurogenic bladder with urine retention due to MSA with chronic maurice 4. HTN 5. old CVA 2007 6. ARF with CKD II 7. anemia chronic disease 8. thrombocytopenia chronic PLAN: UTI Levaquin 250mg IV x 1 change maurice and resend UA. orthostatic hypotension protamine orders in place MSA orthostatic hypotension mobility disorder chronic maurice urine retention PTOT ARF with CKD II IV NS 75cc/hr x 1 liter Admit BUN 27 Cr 2.0 Creatinine increased to 2.4 resume IV fluids.[place] ? 1.8.Has edema,tremors. anemia/thrombocytopenia Admit Hgb 11.5 Plt 130 DVT/GI prophylaxis SCD/RANDAL Pepcid Hypertension/hypotension due to MSA chronic BP 166/91. UTI urine c/s pending. Improving clinically. Plan Plan For more details regarding further plans, please refer to the orders. SKYLER KATHLEEN MD May 22, 2016 10:06
[2016-05-22] MEDS: POTASSIUM CL 20MEQ D5-0.45NACL 1,000 ML IV SCH (10:30)
[2016-05-22] MEDS: hydrALAZINE 20 MG/ML VIAL. IVP PRN ×2 (15:03→19:54)
[2016-05-22] MEDS: CHOLECALCIFEROL (VITAMIN D3) 1,000 UNIT TABLET PO SCH (20:56)
[2016-05-22] MEDS: NITROGLYCERIN OINT 1 GM PACKET. TD SCH (20:58)
[2016-05-23 03:00] VITALS: BP 220/143
[2016-05-23 07:00] VITALS: BP 139/76
[2016-05-23] MEDS: ESCITALOPRAM 10 MG TABLET. PO SCH (09:00)
[2016-05-23] MEDS: IPRATRPIUM/ALBUTEROL 0.5/2.5MG 3 ML NEBU. NEB SCH ×3 (09:13→16:27)
[2016-05-23] MEDS: POTASSIUM CL 20MEQ D5-0.45NACL 1,000 ML IV SCH (09:26)
[2016-05-23] MEDS: MIDODRINE 5 MG TABLET PO SCH ×2 (09:30→17:00)
[2016-05-23] MEDS: SODIUM CHLORIDE 0.65% NASAL SPRAY 45ML BOTTLE. NS SCH ×2 (09:30→14:00)
[2016-05-23] MEDS: FLUTICASONE 50MCG/NASAL SPRAY 16GM BOTTLE. NS SCH (09:31)
[2016-05-23] MEDS: POLYETHYLENE GLYCOL 3350 17 GM PACKET. PO SCH (09:32)
[2016-05-23] MEDS: METHYLPHENIDATE HCL 5 MG TABLET PO SCH (09:33)
[2016-05-23] MEDS: SENNOSIDES 8.6 MG TABLET PO SCH (09:33)
[2016-05-23] MEDS: FAMOTIDINE 20 MG TABLET. PO SCH (09:42)
[2016-05-23] MEDS: ASPIRIN CHEWABLE 81 MG TABLET. PO SCH (09:42)
[2016-05-23] MEDS: DOCUSATE SODIUM 100 MG CAPSULE. PO SCH (09:42)
[2016-05-23] MEDS ORDERED: CEFTRIAXONE SODIUM 1 GM in IV NORMAL SALINE 50ML 50 ML IV SCH (10:00)
--- NOTE | 2016-05-23 10:17 | PDOC ---
PROGRESS NOTES Subjective Subjective feeling better wanting to go back to [place] Objective Objective Vital Signs Date Time Temp Pulse Resp B/P Pulse Ox O2 Delivery O2 Flow Rate FiO2 05/23/16 09:16 97 Room Air 05/23/16 07:00 98.1 20 139/76 98.1 05/23/16 03:00 22 13.0 Intake and Output 05/23/16 07:00 Intake Total 2793 ml Output Total 2775 ml Balance 18 ml Intake Oral 2480 ml IV Total 313 ml Output Urine Total 2775 ml Physical Exam Abdomen: Normal bowel sounds, Soft Heart: Normal S1, Normal S2 General: Cooperative, No acute distress Lungs: Clear to auscultation Neck: Supple Psych/Mental Status: Mood NL Diagnosis Problem List Problems Medical Problems: (1) Unresponsive episode Status: Acute Assessment Assessment 1. complicated UTI recurrent POA ,gramneg 2. autonomic dysfunction with orthostatic hypotension 3. neurogenic bladder with urine retention due to MSA with chronic maurice 4. HTN 5. old CVA 2007 6. ARF with CKD II 7. anemia chronic disease 8. thrombocytopenia chronic PLAN:spoke with DPOA, d/c back to [place] later today. sono kidneys -neg cr stage 3 renal failure. neuro consult appreciated UTI- [id number] po bid [id number] Levaquin 250mg IV x 1 change maurice and resend UA. orthostatic hypotension protamine orders in place MSA orthostatic hypotension mobility disorder chronic maurice urine retention PTOT ARF with CKD II IV NS 75cc/hr x 1 liter Admit BUN 27 Cr 1.9 today Creatinine increased to 2.4 resume IV fluids.[place] ? 1.8.Has edema,tremors. anemia/thrombocytopenia Admit Hgb 11.5 Plt 130 DVT/GI prophylaxis SCD/RANDAL Pepcid Hypertension/hypotension due to MSA chronic BP 166/91. UTI urine c/s pending. Improving clinically. Problems: Plan Plan of Care Problems Medical Problems: (1) Unresponsive episode Status: Acute Comment Review of Relevant I have reviewed the following items aron (where applicable) has been applied. Labs Microbiology 05/21/16 Urine Culture - Preliminary, Resulted 05/21/16 Urine Culture Result 1 (ANA) - Preliminary, Resulted Medications Current Medications Ceftriaxone Sodium/Sodium Chloride (Rocephin/Iv Sodium Chloride 0.9% 50ml) 50 ml @ 100 mls/hr Q24H IV ; Start 05/23/16 at 10:00 Vitals/I & O Vital Sign - Last 24 Hours 05/22/16 05/22/16 05/22/16 05/22/16 10:45 11:07 12:24 15:03 Temp 98.4 98.4 Pulse 101 99 Resp 16 B/P 214/134 160/104 193/132 Pulse Ox 100 O2 Delivery Room Air Room Air 05/22/16 05/22/16 05/22/16 05/22/16 15:05 15:45 16:55 17:52 Temp 97.6 97.6 Pulse 99 Resp 14 B/P 197/132 112/67 112/67 Pulse Ox 100 O2 Delivery Room Air Room Air 05/22/16 05/22/16 05/22/16 05/22/16 19:40 19:54 20:00 20:17 Temp 98.1 98.1 Pulse 102 Resp 18 B/P 238/132 238/132 112/61 Pulse Ox 99 O2 Delivery Room Air Room Air 05/22/16 05/22/16 05/22/16 05/22/16 20:49 22:40 23:08 23:37 Temp 96.7 96.7 Pulse 89 Resp 20 B/P 139/89 Pulse Ox 100 96 100 96 O2 Delivery Room Air BiPAP/CPAP BiPAP/CPAP BiPAP/CPAP O2 Flow Rate 13.0 05/23/16 05/23/16 05/23/16 05/23/16 01:51 03:00 04:49 07:00 Temp 98.1 98.1 98.1 98.1 Pulse 22 Resp 20 20 B/P 220/143 139/76 Pulse Ox 96 100 100 100 O2 Delivery BiPAP/CPAP BiPAP/CPAP BiPAP/CPAP BiPAP/CPAP O2 Flow Rate 13.0 05/23/16 09:16 Pulse Ox 97 O2 Delivery Room Air Intake and Output 05/22/16 05/22/16 05/23/16 15:00 23:00 07:00 Intake Total 2793 ml 0 ml Output Total 925 ml 1850 ml Balance 1868 ml -1850 ml ANGEL TRAVIS MD May 23, 2016 10:17
--- NOTE | 2016-05-23 10:54 | PDOC2 ---
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 ) GI: Constipation, Other (neurogenic bowel) Heme/Onc: Anemia NOS Renal/: Chronic renal insuff (CKD II ), Chronic renal failure, UTI ( recurrent complicated due to chronic maurice ), Other (neurogenic bladded with urinary retention ) Social History No ALCOHOL: none Drugs: None Lives: Longterm Current Problem List Problem List Problems Medical Problems: (1) Unresponsive episode Status: Acute Current Medications Current Medications Current Medications Hydralazine HCl (Apresoline) 10 mg 1X ONCE IVP Last administered on 05/21/16 01:57; Start 05/21/16 at 01:30; Stop 05/21/16 at 01:31; Status DC Ondansetron HCl (Zofran) 4 mg PRN Q8HRS PRN IV NAUSEA/VOMITING Last administered on 05/21/16 02:51; Start 05/21/16 at 02:30; Stop 05/22/16 at 02:29; Status DC Morphine Sulfate 2 mg PRN Q2HR PRN IV SEVERE PAIN Last administered on 02:51; Start 05/21/16 at 02:30; Stop 05/21/16 at 08:44; Status DC Acetaminophen 650 mg 650 mg PRN Q4HRS PRN PO FEVER; Start 05/21/16 at 02:30; Stop 05/22/16 at 02:29; Status DC Ceftriaxone Sodium (Rocephin 1gm Ivpb For Omni) 50 ml @ 100 mls/hr 1X ONCE IV Last administered on 05/21/16 02:51; Start 05/21/16 at 03:00; Stop 05/21/16 at 03:29; Status DC Hydralazine HCl (Apresoline) 10 mg PRN Q1HR PRN IVP HYPERTENSION, SEE COMMENTS ; Start 05/21/16 at 02:30; Stop 05/21/16 at 08:44; Status DC Hydralazine HCl (Apresoline) 10 mg PRN Q4HRS PRN IVP HYPERTENSION, SEE COMMENTS Last administered on 05/22/16 19:54; Start 05/21/16 at 08:45 Morphine Sulfate 2 mg PRN Q2HR PRN IV SEVERE PAIN; Start 05/21/16 at 08:15 Aspirin (Children'S Aspirin) 81 mg DAILY PO Last administered on 05/23/16 09:42 ; Start 05/21/16 at 09:00 Docusate Sodium (Colace) 100 mg DAILY PO Last administered on 05/23/16 09:42; Start 05/21/16 at 09:00 Magnesium Hydroxide (Milk Of Magnesia) 400 mg PRN DAILY PRN PO CONSTIPATION; Start 05/21/16 at 08:15; Stop 05/21/16 at 16:11; Status DC Nitroglycerin (Nitro-Bid Oint) 1 inch HS TD Last administered on 05/21/16 20:29 ; Start 05/21/16 at 21:00 Polyethylene Glycol (miraLAX PACKET) 17 gm BID PO Last administered on 09:32; Start 05/21/16 at 09:00 Sennosides (Senna) 17.2 mg DAILY PO Last administered on 05/23/16 09:33; Start 05/21/16 at 09:00 Sodium Chloride (Saline Mist Nasal) 1 mars TID NS Last administered on 05/23/16 09:30; Start 05/21/16 at 09:00 Albuterol/ Ipratropium (Duoneb) 3 ml RTQID NEB Last administered on 05/23/16 09 :13; Start 05/21/16 at 12:00 Vitamin D (Vitamin D3) 2,000 unit HS PO Last administered on 05/22/16 20:56; Start 05/21/16 at 21:00 Escitalopram Oxalate (Lexapro) 20 mg DAILY PO Last administered on 05/22/16 09: 07; Start 05/21/16 at 09:00 Fluticasone Propionate (Flonase) 2 spray DAILY NS Last administered on 09:31; Start 05/21/16 at 09:00 Magnesium Hydroxide (Milk Of Magnesia) 2,400 mg PRN DAILY PRN PO CONSTIPATION; Start 05/21/16 at 08:15 Midodrine (Proamatine) 10 mg BIDWMEALS PO Last administered on 05/22/16 17:52; Start 05/21/16 at 09:00 Midodrine (Proamatine) 10 mg PRN Q4HRS PRN PO HYPOTENSION; Start 05/21/16 at 08: 15 Methylphenidate HCl 5 mg 5 mg BIDACBL PO Last administered on 05/22/16 12:40; Start 05/21/16 at 11:30; Stop 05/23/16 at 10:13; Status DC Levofloxacin/ Dextrose 50 ml @ 50 mls/hr 1X ONCE IV Last administered on 09:49; Start 05/21/16 at 10:00; Stop 05/21/16 at 10:59; Status DC Sodium Chloride (Iv Sodium Chloride 0.9% 1000ml Bag) 1,000 ml @ 75 mls/hr 1X ONCE IV Last administered on 05/21/16 09:48; Start 05/21/16 at 09:00; Stop at 22:19; Status DC Potassium Chloride (Klor-Con) 20 meq 1X ONCE PO Last administered on 05/21/16 10:03; Start 05/21/16 at 10:00; Stop 05/21/16 at 10:01; Status DC Famotidine 20 mg 20 mg BID PO Last administered on 05/23/16 09:42; Start at 11:00 Potassium Chloride 20 meq/ Dextrose/Sodium Chloride 1,010 ml @ 75 mls/hr CONT IV ; Start 05/22/16 at 09:30; Stop 05/22/16 at 09:38; Status DC Potassium Chloride/Dextrose/ Sod Cl 1,000 ml @ 75 mls/hr [id number] IV Last administered on 05/23/16 09:26; Start 05/22/16 at 09:45 Ceftriaxone Sodium/Sodium Chloride (Rocephin/Iv Sodium Chloride 0.9% 50ml) 50 ml @ 100 mls/hr Q24H IV Last administered on 05/23/16 10:39; Start 05/23/16 at 10:00 Active Scripts Active Keflex (Cephalexin) 250 Mg Capsule 1 Cap PO TID Reported Randhawa' Milk Of Magnesia (Magnesium Hydroxide) 311 Mg Tab.chew 311 Mg PO Milk Of Magnesia (Magnesium Hydroxide) 400 Mg/5 Ml Oral.susp 400 Mg PO PRN PRN Midodrine Hcl 10 Mg Tablet 10 Mg PO PRN Q4HRS PRN Sennosides 8.6 Mg Tablet 8.6 Mg PO Senexon (Sennosides) 8.6 Mg Tablet 8.6 Mg PO Nasal Mist (0.9 % Sodium Chloride) 126 Ml [place] 126 Ml NS Nitro-Bid (Nitroglycerin) 1 Gm Oint...g. 1 Gm TD Hydralazine Hcl 10 Mg Tablet 1 Tab PO PRN Q8HRS PRN Miralax (Polyethylene Glycol 3350) 17 Gm Powd.pack 1 Packet PO BID Flonase Allergy Relief (Fluticasone Propionate) 9.9 Ml [place].susp 2 Sprays NS DAILY Albuterol Sulfate Conc Neb Soln (Albuterol Sulfate) 2.5 Mg/0.5 Ml Vial.neb 1 Vial NEB Q4HRS Docusate Sodium 100 Mg Capsule 1 Cap PO DAILY D3-2000 (Cholecalciferol (Vitamin D3)) 2,000 Unit Capsule 2,000 Unit PO Strattera (Atomoxetine Hcl) 18 Mg Capsule 1 Cap PO DAILYWBKFT Aspirin 81 Mg Tab.chew 1 Tab PO DAILY Escitalopram Oxalate 20 Mg Tablet 1 Tab PO DAILY Allergies Allergies: Coded Allergies: No Known Drug Allergies (Unverified , 02/21/16) ROS Review of System GEN: no Fevers no Chills EYES: no new Visual Complaints ENT: no EN Drainage no Hearing deficiets CVS: no Orthopnea no CP RESP: no SOB no MAN GI: no Nausea no Vomiting : no Dysuria no Urgency Ch Maurice HEME: no easy bruising no Palp Ly Nodes NEURO ch Focal Weakness no Sz PSYCH: no Suicidal Ideation + Depression SKIN: no Rashes ENDO: no Polyuria or Polydipsia no Hot/Cold Intolerance MU SK: occ Arthraigia no Myalgia Physical Exam Physical Exam General Appearance: Awake Alert Oriented x 2 In no Distress; flat affect Eyes: VIsion Unchanged Conjunctiva Normal EN: No EN Drainage Mucous Memb. moist Neck: no JVD min JVP Supple no Thyromegaly CVS: S1 S2 ? Murmur No Gallop No Rub +2-3 Edema Resp: no Rales no Rhonchi no Acc. Muscle use GI: BAS +ve NO Bruit Non Tender Non Distended : no CVA tenderness; no Suprapubic Tenderness SKIN: no Rashes Breast Exam deferred Mu.Sk: Adequate ROM in upper arms no Muscle Atrophy Heme: Unable to palpate Obvious LAD no palp Splenomegaly NEURO: decreased Strength on left and Tone Cranial Nerves II - XII grossly intact Psych: + Depressed appearing no Active hallucination Vital Signs Vital Signs Date Time Temp Pulse Resp B/P Pulse Ox O2 Delivery O2 Flow Rate FiO2 05/23/16 09:30 100 160/81 05/23/16 09:16 97 Room Air 05/23/16 07:00 98.1 20 98.1 05/23/16 03:00 13.0 Assessment & Plan ARF: better with IVF. Current FLuid and E-lyte status does not necessitate emergent need for Dialysis. CKD III - based on Pts report and has been previously diagnosed HTN: Very Labile with Orthostasis; Current BP meds reviewed. no changes for now Ch Urinary retention - Pt has maurice and is scheduled for SPC in the near future Discussed Plan of Care and prognosis etc. at length with pt Labs Labs Laboratory Tests Test 05/21/16 17:50 05/22/16 05:00 Urine Collection Type U cath Urine Color Yellow Urine Clarity Cloudy Urine pH 5.5 Urine Specific [place] 1.025 Urine Protein 100mg/dL (NEG-TRACE) Urine Glucose (UA) Negativemg/dL (NEG) Urine Ketones (Stick) Negativemg/dL (NEG) Urine Blood Small (NEG) Urine Nitrite Positive (NEG) Urine Bilirubin Negative (NEG) Urine Urobilinogen Dipstick 0.2mg/dL (0.2 mg/dL) Urine Leukocyte Esterase Moderate (NEG) Urine RBC 1-2/HPF (0-2) Urine WBC >40/HPF (0-4) Urine Transitional Epithelial Cells Occ/LPF Urine Bacteria Few/HPF (0-FEW) Urine Hyaline Casts Few/HPF Urine Mucus Mod/LPF White Blood Count 6.5x10^3/uL (4.0-11.0) Red Blood Count 3.32x10^6/uL (4.30-5.70) Hemoglobin 9.4g/dL (13.0-17.5) Hematocrit 28.4% (39.0-53.0) Mean Corpuscular Volume 85fL (79-100) Mean Corpuscular Hemoglobin 28pg (25-35) Mean Corpuscular Hemoglobin Concent 33g/dL (31-37) Red Cell Distribution Width 14.2% (11.5-14.5) Platelet Count 110x10^3/uL (140-400) Neutrophils (%) (Auto) 58% (31-73) Lymphocytes (%) (Auto) 33% (24-48) Monocytes (%) (Auto) 7% (0-9) Eosinophils (%) (Auto) 1% (0-3) Basophils (%) (Auto) 0% (0-3) Neutrophils # (Auto) 3.8x10^3uL (1.8-7.7) Lymphocytes # (Auto) 2.2x10^3/uL (1.0-4.8) Monocytes # (Auto) 0.5x10^3/uL (0.0-1.1) Eosinophils # (Auto) 0.0x10^3/uL (0.0-0.7) Basophils # (Auto) 0.0x10^3/uL (0.0-0.2) Sodium Level 143mmol/L (136-145) Potassium Level 4.1mmol/L (3.5-5.1) Chloride Level 106mmol/L (98-107) Carbon Dioxide Level 31mmol/L (21-32) Anion Gap 6 (6-14) Blood Urea Nitrogen 34mg/dL (8-26) Creatinine 2.4mg/dL (0.7-1.3) Estimated GFR (Cockcroft-Gault) 35.0 Glucose Level 88mg/dL (70-99) Calcium Level 9.2mg/dL (8.5-10.1) BRYCE BLANCO MD May 23, 2016 10:54
[2016-05-23 11:17] VITALS: BP 179/107
[2016-05-23 11:44] LABS: BASO # 0.1 x10^3/uL (0.0-0.2); BASO % 1 % (0-3); EOS % 1 % (0-3); HEMATOCRIT 33.9 % (39.0-53.0); HEMOGLOBIN 11.2 g/dL (13.0-17.5); LYMPH # 1.4 x10^3/uL (1.0-4.8); LYMPH % 17 % (24-48); MEAN CORPUSCULAR HEMOGLOBIN 28 pg (25-35); MEAN CORPUSCULAR HGB CONC 33 g/dL (31-37); MEAN CORPUSCULAR VOLUME 85 fL (79-100); MONO % 8 % (0-9); NEUT % 73 % (31-73); PLATELET COUNT 134 x10^3/uL (140-400); RED BLOOD COUNT 3.97 x10^6/uL (4.30-5.70); RED CELL DISTRIBUTION WIDTH 14.2 % (11.5-14.5); WHITE BLOOD COUNT 7.9 x10^3/uL (4.0-11.0)
[2016-05-23 11:55] LABS: CALCIUM 9.9 mg/dL (8.5-10.1); CREATININE 1.9 mg/dL (0.7-1.3); GFR 45.8; POTASSIUM 3.8 mmol/L (3.5-5.1)
[2016-05-23 12:13] VITALS: BP 137/95
--- NOTE | 2016-05-23 12:22 | RAD ---
Abdominal ultrasound - limited to the kidneys Indication: Renal failure. Comparison: None. Procedure: Transabdominal ultrasound images are obtained of the kidneys and bladder. Findings: Right kidney measures 10.6 cm in length. Left kidney measures 10.8 cm in length. Both kidneys are without evidence of obstruction or stone. Parenchymal echogenicity of both kidneys appears appropriate. Urinary bladder is not well evaluated as it is collapsed around Cerda catheter. Impression: Unremarkable renal ultrasound.
--- NOTE | 2016-05-23 13:14 | PDOC2 ---
NEUROLOGY CONSULT Date of Admission Date of Admission DATE: 05/23/16 TIME: 13:04 Reason for Consult Reason for Consult: Syncope Referring Physician Referring Physician: Dr. 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 Indeed , he has features of Parkinson's disease with autonomic dysfunction including gastroparesis, urinary incontinence, and multiple episodes of vasovagal syncope. He has been on midodrine and Florinef in the past, but has to be very careful because he also runs supine hypertension. He also has a history of left frontal stroke. There is no history of convulsive seizure activity. He says that he has not walked in several months because of generalized weakness. He also has a chronic Cerda. He says that he has had several EEG studies at . Past Medical History Cardiovascular: HTN Pulmonary: Other (sleep apnea on CPAP) CENTRAL NERVOUS SYSTEM: CVA, Other (multiple system atrophy) Renal/: UTI Past Surgical History Past Surgical History: No pertinent history Family History Family History: No pertinent hx Social History Social History Single, does not use alcohol or tobacco Current Medications Current Medications Current Medications Hydralazine HCl (Apresoline) 10 mg 1X ONCE IVP Last administered on 05/21/16 01:57; Start 05/21/16 at 01:30; Stop 05/21/16 at 01:31; Status DC Ondansetron HCl (Zofran) 4 mg PRN Q8HRS PRN IV NAUSEA/VOMITING Last administered on 05/21/16 02:51; Start 05/21/16 at 02:30; Stop 05/22/16 at 02:29; Status DC Morphine Sulfate 2 mg PRN Q2HR PRN IV SEVERE PAIN Last administered on 02:51; Start 05/21/16 at 02:30; Stop 05/21/16 at 08:44; Status DC Acetaminophen 650 mg 650 mg PRN Q4HRS PRN PO FEVER; Start 05/21/16 at 02:30; Stop 05/22/16 at 02:29; Status DC Ceftriaxone Sodium (Rocephin 1gm Ivpb For Omni) 50 ml @ 100 mls/hr 1X ONCE IV Last administered on 05/21/16 02:51; Start 05/21/16 at 03:00; Stop 05/21/16 at 03:29; Status DC Hydralazine HCl (Apresoline) 10 mg PRN Q1HR PRN IVP HYPERTENSION, SEE COMMENTS ; Start 05/21/16 at 02:30; Stop 05/21/16 at 08:44; Status DC Hydralazine HCl (Apresoline) 10 mg PRN Q4HRS PRN IVP HYPERTENSION, SEE COMMENTS Last administered on 05/22/16 19:54; Start 05/21/16 at 08:45 Morphine Sulfate 2 mg PRN Q2HR PRN IV SEVERE PAIN; Start 05/21/16 at 08:15 Aspirin (Children'S Aspirin) 81 mg DAILY PO Last administered on 05/23/16 09:42 ; Start 05/21/16 at 09:00 Docusate Sodium (Colace) 100 mg DAILY PO Last administered on 05/23/16 09:42; Start 05/21/16 at 09:00 Magnesium Hydroxide (Milk Of Magnesia) 400 mg PRN DAILY PRN PO CONSTIPATION; Start 05/21/16 at 08:15; Stop 05/21/16 at 16:11; Status DC Nitroglycerin (Nitro-Bid Oint) 1 inch HS TD Last administered on 05/21/16 20:29 ; Start 05/21/16 at 21:00 Polyethylene Glycol (miraLAX PACKET) 17 gm BID PO Last administered on 09:32; Start 05/21/16 at 09:00 Sennosides (Senna) 17.2 mg DAILY PO Last administered on 05/23/16 09:33; Start 05/21/16 at 09:00 Sodium Chloride (Saline Mist Nasal) 1 mars TID NS Last administered on 05/23/16 09:30; Start 05/21/16 at 09:00 Albuterol/ Ipratropium (Duoneb) 3 ml RTQID NEB Last administered on 05/23/16 09 :13; Start 05/21/16 at 12:00 Vitamin D (Vitamin D3) 2,000 unit HS PO Last administered on 05/22/16 20:56; Start 05/21/16 at 21:00 Escitalopram Oxalate (Lexapro) 20 mg DAILY PO Last administered on 05/22/16 09: 07; Start 05/21/16 at 09:00 Fluticasone Propionate (Flonase) 2 spray DAILY NS Last administered on 09:31; Start 05/21/16 at 09:00 Magnesium Hydroxide (Milk Of Magnesia) 2,400 mg PRN DAILY PRN PO CONSTIPATION; Start 05/21/16 at 08:15 Midodrine (Proamatine) 10 mg BIDWMEALS PO Last administered on 05/22/16 17:52; Start 05/21/16 at 09:00 Midodrine (Proamatine) 10 mg PRN Q4HRS PRN PO HYPOTENSION; Start 05/21/16 at 08: 15 Methylphenidate HCl 5 mg 5 mg BIDACBL PO Last administered on 05/22/16 12:40; Start 05/21/16 at 11:30; Stop 05/23/16 at 10:13; Status DC Levofloxacin/ Dextrose 50 ml @ 50 mls/hr 1X ONCE IV Last administered on 09:49; Start 05/21/16 at 10:00; Stop 05/21/16 at 10:59; Status DC Sodium Chloride (Iv Sodium Chloride 0.9% 1000ml Bag) 1,000 ml @ 75 mls/hr 1X ONCE IV Last administered on 05/21/16 09:48; Start 05/21/16 at 09:00; Stop at 22:19; Status DC Potassium Chloride (Klor-Con) 20 meq 1X ONCE PO Last administered on 05/21/16 10:03; Start 05/21/16 at 10:00; Stop 05/21/16 at 10:01; Status DC Famotidine 20 mg 20 mg BID PO Last administered on 05/23/16 09:42; Start at 11:00 Potassium Chloride 20 meq/ Dextrose/Sodium Chloride 1,010 ml @ 75 mls/hr CONT IV ; Start 05/22/16 at 09:30; Stop 05/22/16 at 09:38; Status DC Potassium Chloride/Dextrose/ Sod Cl 1,000 ml @ 75 mls/hr [id number] IV Last administered on 05/23/16 09:26; Start 05/22/16 at 09:45 Ceftriaxone Sodium/Sodium Chloride (Rocephin/Iv Sodium Chloride 0.9% 50ml) 50 ml @ 100 mls/hr Q24H IV Last administered on 05/23/16t 10:39; Start 05/23/16 at 10:00 Active Scripts Active Keflex (Cephalexin) 250 Mg Capsule 1 Cap PO TID Reported Randhawa' Milk Of Magnesia (Magnesium Hydroxide) 311 Mg Tab.chew 311 Mg PO Milk Of Magnesia (Magnesium Hydroxide) 400 Mg/5 Ml Oral.susp 400 Mg PO PRN PRN Midodrine Hcl 10 Mg Tablet 10 Mg PO PRN Q4HRS PRN Sennosides 8.6 Mg Tablet 8.6 Mg PO Senexon (Sennosides) 8.6 Mg Tablet 8.6 Mg PO Nasal Mist (0.9 % Sodium Chloride) 126 Ml [place] 126 Ml NS Nitro-Bid (Nitroglycerin) 1 Gm Oint...g. 1 Gm TD Hydralazine Hcl 10 Mg Tablet 1 Tab PO PRN Q8HRS PRN Miralax (Polyethylene Glycol 3350) 17 Gm Powd.pack 1 Packet PO BID Flonase Allergy Relief (Fluticasone Propionate) 9.9 Ml [place].susp 2 Sprays NS DAILY Albuterol Sulfate Conc Neb Soln (Albuterol Sulfate) 2.5 Mg/0.5 Ml Vial.neb 1 Vial NEB Q4HRS Docusate Sodium 100 Mg Capsule 1 Cap PO DAILY D3-2000 (Cholecalciferol (Vitamin D3)) 2,000 Unit Capsule 2,000 Unit PO Strattera (Atomoxetine Hcl) 18 Mg Capsule 1 Cap PO DAILYWBKFT Aspirin 81 Mg Tab.chew 1 Tab PO DAILY Escitalopram Oxalate 20 Mg Tablet 1 Tab PO DAILY Allergies Allergies: Coded Allergies: No Known Drug Allergies (Unverified , 02/21/16) ROS Review of System Patient denies fevers, chills, weight loss, dyspnea, angina, abdominal pain, change in bowels, or dysuria. 14 point review of systems is negative. Physical Exam Physical Examination PHYSICAL EXAMINATION: Vital signs: see above. General appearance is normal and in no acute distress. HEENT: Normocephalic and nontraumatic. Eyes, nose, ears, and throat are unremarkable. Neck is supple. No lymphadenopathy. No bruits are heard over the carotid artery. No crepitus. NEUROLOGICAL EXAMINATION: Mental Status Examination: Alert. Oriented to time, place, and person. Answers questions and follows commends. Pupils are equal round and reactive to light and accommodation. Extraocular movements are intact. Visual field exam shows no defect on the direct confrontation. No motor or sensory deficits on the facial exam. Uvula in the midline and the soft palate elevated symmetrically. No deviation of the tongue to any direction. Gross hearing is normal. Shoulder shrug normal. Muscle strength is 4/5. Deep tendon reflexes are 2+ all around. Plantar reflex is with flexion response bilaterally. [id number] test performance is accurate. Gait not tested. Sensory exam shows no deficits. No cerebellar signs are elicited. He does have masked facies, bradykinesia, cogwheel rigidity, minimal rest tremor. Vitals VITALS Vital Signs Date Time Temp Pulse Resp B/P Pulse Ox O2 Delivery O2 Flow Rate FiO2 05/23/16 12:13 95 137/95 05/23/16 11:17 98.6 18 99 Room Air 98.6 05/23/16 03:00 13.0 Labs Labs Laboratory Tests Test 05/21/16 17:50 05/22/16 05:00 05/23/16 11:35 Urine Collection Type U cath Urine Color Yellow Urine Clarity Cloudy Urine pH 5.5 Urine Specific [place] 1.025 Urine Protein 100mg/dL (NEG-TRACE) Urine Glucose (UA) Negativemg/dL (NEG) Urine Ketones (Stick) Negativemg/dL (NEG) Urine Blood Small (NEG) Urine Nitrite Positive (NEG) Urine Bilirubin Negative (NEG) Urine Urobilinogen Dipstick 0.2mg/dL (0.2 mg/dL) Urine Leukocyte Esterase Moderate (NEG) Urine RBC 1-2/HPF (0-2) Urine WBC >40/HPF (0-4) Urine Transitional Epithelial Cells Occ/LPF Urine Bacteria Few/HPF (0-FEW) Urine Hyaline Casts Few/HPF Urine Mucus Mod/LPF White Blood Count 6.5x10^3/uL (4.0-11.0) 7.9x10^3/uL (4.0-11.0) Red Blood Count 3.32x10^6/uL (4.30-5.70) 3.97x10^6/uL (4.30-5.70) Hemoglobin 9.4g/dL (13.0-17.5) 11.2g/dL (13.0-17.5) Hematocrit 28.4% (39.0-53.0) 33.9% (39.0-53.0) Mean Corpuscular Volume 85fL (79-100) 85fL (79-100) Mean Corpuscular Hemoglobin 28pg (25-35) 28pg (25-35) Mean Corpuscular Hemoglobin Concent 33g/dL (31-37) 33g/dL (31-37) Red Cell Distribution Width 14.2% (11.5-14.5) 14.2% (11.5-14.5) Platelet Count 110x10^3/uL (140-400) 134x10^3/uL (140-400) Neutrophils (%) (Auto) 58% (31-73) 73% (31-73) Lymphocytes (%) (Auto) 33% (24-48) 17% (24-48) Monocytes (%) (Auto) 7% (0-9) 8% (0-9) Eosinophils (%) (Auto) 1% (0-3) 1% (0-3) Basophils (%) (Auto) 0% (0-3) 1% (0-3) Neutrophils # (Auto) 3.8x10^3uL (1.8-7.7) 5.8x10^3uL (1.8-7.7) Lymphocytes # (Auto) 2.2x10^3/uL (1.0-4.8) 1.4x10^3/uL (1.0-4.8) Monocytes # (Auto) 0.5x10^3/uL (0.0-1.1) 0.6x10^3/uL (0.0-1.1) Eosinophils # (Auto) 0.0x10^3/uL (0.0-0.7) 0.1x10^3/uL (0.0-0.7) Basophils # (Auto) 0.0x10^3/uL (0.0-0.2) 0.1x10^3/uL (0.0-0.2) Sodium Level 143mmol/L (136-145) 143mmol/L (136-145) Potassium Level 4.1mmol/L (3.5-5.1) 3.8mmol/L (3.5-5.1) Chloride Level 106mmol/L (98-107) 103mmol/L (98-107) Carbon Dioxide Level 31mmol/L (21-32) 32mmol/L (21-32) Anion Gap 6 (6-14) 8 (6-14) Blood Urea Nitrogen 34mg/dL (8-26) 30mg/dL (8-26) Creatinine 2.4mg/dL (0.7-1.3) 1.9mg/dL (0.7-1.3) Estimated GFR (Cockcroft-Gault) 35.0 45.8 Glucose Level 88mg/dL (70-99) 80mg/dL (70-99) Calcium Level 9.2mg/dL (8.5-10.1) 9.9mg/dL (8.5-10.1) Laboratory Tests Test 05/23/16 11:35 White Blood Count 7.9x10^3/uL (4.0-11.0) Red Blood Count 3.97x10^6/uL (4.30-5.70) Hemoglobin 11.2g/dL (13.0-17.5) Hematocrit 33.9% (39.0-53.0) Mean Corpuscular Volume 85fL (79-100) Mean Corpuscular Hemoglobin 28pg (25-35) Mean Corpuscular Hemoglobin Concent 33g/dL (31-37) Red Cell Distribution Width 14.2% (11.5-14.5) Platelet Count 134x10^3/uL (140-400) Neutrophils (%) (Auto) 73% (31-73) Lymphocytes (%) (Auto) 17% (24-48) Monocytes (%) (Auto) 8% (0-9) Eosinophils (%) (Auto) 1% (0-3) Basophils (%) (Auto) 1% (0-3) Neutrophils # (Auto) 5.8x10^3uL (1.8-7.7) Lymphocytes # (Auto) 1.4x10^3/uL (1.0-4.8) Monocytes # (Auto) 0.6x10^3/uL (0.0-1.1) Eosinophils # (Auto) 0.1x10^3/uL (0.0-0.7) Basophils # (Auto) 0.1x10^3/uL (0.0-0.2) Sodium Level 143mmol/L (136-145) Potassium Level 3.8mmol/L (3.5-5.1) Chloride Level 103mmol/L (98-107) Carbon Dioxide Level 32mmol/L (21-32) Anion Gap 8 (6-14) Blood Urea Nitrogen 30mg/dL (8-26) Creatinine 1.9mg/dL (0.7-1.3) Estimated GFR (Cockcroft-Gault) 45.8 Glucose Level 80mg/dL (70-99) Calcium Level 9.9mg/dL (8.5-10.1) Images Images CT head: 1. Hypodensity identified in the left frontal lobe likely old infarct. There is tiny focus of hyperdensity, measuring 3 millimeters, identified in the hypodensity of the left frontal lobe just lateral to the left lateral ventricle could be calcification. Comparison to prior exam is recommended if available. Alternatively close interval followup examination can be considered. Assessment/Plan Assessment/Plan Impression: This patient has a known diagnosis of multiple system atrophy, and I agree with this diagnosis. He certainly has some aspects of Parkinson's disease along with severe autonomic dysfunction Syncope is related to the orthostatic hypotension. The urinary tract infection could have exacerbated the symptoms. History of prior stroke Recommendations: Unfortunately he is already on a nearly maximum dose of midodrine and because of occasional supine hypertension, it would be dangerous to increase the dose. I don't see any offending medications that we could discontinue to help with the orthostasis Therefore, I really do not have any additional input, unfortunately, on this case. He certainly does not need further neurological studies such as electroencephalogram, which have already been done. Thank you for letting me help with the patient's care. JAGDISH MILLS MD May 23, 2016 13:14
[2016-05-23 15:01] VITALS: BP 168/97
[2016-05-23 17:00] VITALS: BP 168/97
[2016-05-23] MEDS ORDERED: CEFPODOXIME PROXETIL 100 MG TABLET. PO SCH (21:00)
--- NOTE | 2016-05-24 01:57 | CONS ---
DATE OF CONSULTATION: HISTORY OF PRESENT ILLNESS: The patient is a 50-year-old -[place] gentleman with known CKD diagnosed at an outside facility by his admission. He apparently presented to the ER with altered mental status. He was found unresponsive and was felt to be down for almost 20 minutes. He was breathing spontaneously, had pulse but did not respond to verbal stimuli. He is known to have orthostatic hypotension, although in the ER, his blood pressures were 155/92. He denies any history of diabetes per se. His BUN and creatinine were 27 and 2.0 on presentation, which went up to 2.4 yesterday, and today, it is back down to 1.9. He seems to run a creatinine of about 1.8-2.0 as noted in the past. Renal sonogram was done here and does not appear to show any gross abnormalities. He does not know the reason for his CKD. He has had a stroke and claims that his memory is very poor. In this setting, we were asked to see him for chronic renal insufficiency. He also has a neurogenic bladder and requires chronic Cerda. He is scheduled to have a KUB in the near future for suprapubic catheter. He does have limitations in the movements of all four extremities, but has good emut-up-wrsvc coordination and is able to eat his lunch by himself. He does not remember what happened prior to him passing out. BRYCE BLANCO MD DR: ANAYA/brigido JOB#: [id number] / [id number]
--- NOTE | 2016-05-24 22:03 | PDOC ---
Provider Note Provider Note Discharge summary dictated. #[id number] ANGEL TRAVIS MD May 24, 2016 22:03
--- NOTE | 2016-05-25 08:56 | DS ---
DATE OF DISCHARGE: 05/23/2016 REASON FOR ADMISSION TO THE HOSPITAL: Episode of unresponsiveness. The patient has orthostatic hypotension, history of previous strokes, hypertension, chronic renal insufficiency. CONSULTATIONS: Dr. Cohen and Dr. Epifanio Delacruz, Renal. PROCEDURES DONE: 1. CT head. 2. Ultrasound of the kidneys. COMPLICATIONS NOTED: None. HOSPITAL COURSE: The patient is a 50-year-old male who has a history of CVA in 2007. He also had Parkinson's features, has multiple episodes of vasovagal syncope. He was on midodrine and Florinef in the past, history of left frontal stroke. He has been in a wheelchair for a couple of months and also chronic Maurice catheter because of bladder retention and he has been followed at and also Renal at . He has chronic renal failure, usually less than 2. He also has sleep apnea, on CPAP mask. The patient was found unresponsive for a couple of minutes at the senior care. This happened on and off for a couple of days now. He has a history of doing this in the past with orthostatic hypotension as well as blood pressure going up, was sent to the Emergency Room. CT head shows old CVA, no new stroke as seen by Neurology. Unfortunately, there is nothing that could be done at this point. He had already been on midodrine and the patient's creatinine 2.4, came down to 1.9. Ultrasound of the kidneys did not show any obstructive problems. The patient has a chronic Maurice catheter. Urine cultures were done and also Maurice catheter was changed. On the whole, his condition was improving. He is more back to his baseline, awake and talking, and urine cultures show sensitive to nitrofurantoin Enterobacteriaceae and the patient was initially discharged on Vantin until the culture was available. We will change it to nitrofurantoin once the culture was available. White count is 8, hemoglobin 11, platelets 134. Electrolytes showed BUN 27, creatinine 2.4, came down to 1.9. Urine, a lot of leukocytes. FINAL DIAGNOSES: 1. Syncopal episode. 2. Vasovagal. 3. History of previous stroke. 4. Urinary tract infection, Enterococcus, Maurice catheter was changed. 5. Acute on chronic renal insufficiency, improved with hydration. 6. History of Parkinson's features. 7. Labile Hypotension with orthostatic. 8. Chronic bladder retention on [employer]. PLAN: At this time was discharge back to the senior care on nitrofurantoin for 10 days and the patient has an appointment to follow with Neurology and Nephrology at [facility] in 1 week. ANGEL TRAVIS MD DR: HARIKA/brigido JOB#: [id number] / [id number] [facility], [facility]
== END 2016-05-23 17:50 | DRG 683 ==
LOC: ER 00:43 → 2 SOUTH 02:23
PROVIDERS: ADMIT Internal Medicine; ATTEND Internal Medicine
PROC: 5A09457 Assistance with Respiratory Ventilation, 24-96 Consecutive Hours, Continuous Positive Airway Pressure (ICD-10-PCS; principal; 2016-05-22)
DX: N17.9 Acute kidney failure, unspecified (principal); N39.0 Urinary tract infection, site not specified; D63.8 Anemia in other chronic diseases classified elsewhere; D69.6 Thrombocytopenia, unspecified; G20 Parkinson's disease; G47.33 Obstructive sleep apnea (adult) (pediatric); I12.9 Hypertensive chronic kidney disease with stage 1 through stage 4 chronic kidney disease, or unspecified chronic kidney disease; I95.1 Orthostatic hypotension; K31.84 Gastroparesis; N18.3 Chronic kidney disease, stage 3 (moderate); N31.9 Neuromuscular dysfunction of bladder, unspecified; R32 Unspecified urinary incontinence; Z86.73 Personal history of transient ischemic attack (TIA), and cerebral infarction without residual deficits; Z98.2 Presence of cerebrospinal fluid drainage device; Z79.899 Other long term (current) drug therapy; F45.8 Other somatoform disorders
CPT/HCPCS: 36415; 70450; 71010; 76770; 80048; 80053; 81001; 85027; 87086; 87186; 87641; 93005; 94640; 94660; 94760; 96365; 96375; J0360; J0690; J0696; J1956; J2270; J2405; J7030; J7620; 97530; 97535; 99285-25